=== PATIENT | male | born 1990 | race Caucasian/White ===

== ENCOUNTER 2018-04-23 11:01 | Emergency (ER) | payer OTHER ==
[~2018-04-23] VITALS: Ht 172.7 cm; Wt 68.0 kg
[2018-04-23] MEDS ORDERED: VENTOLIN HFA18 GM (11:22)
[2018-04-23] MEDS ORDERED: [UNRECOGNIZED DRUG - OTHER] (11:22)
== END 2018-04-23 16:49 | disposition home or self-care (01) ==
LOC: ER 11:01
DX: K29.50 Unspecified chronic gastritis without bleeding (principal)